=== PATIENT | female | born 2000 | race African-American/Black ===

== ENCOUNTER 2019-04-13 06:40 | Observation (INO) | payer OTHER, SELFPAY ==
--- NOTE | 2019-04-13 06:36 | PC.NURSE ---
spoke with L&D nurse; Janice LOW, and informed her of this pt being en route to them for c/c of pelvic pain, low back pain, and is 31 weeks . Pt taken ot L&D via ED w/c by Alondra Lima RN
[2019-04-13 07:10] VITALS: BP 128/71; PULSE 84
[2019-04-13 07:16] VITALS: BP 108/57; PULSE 81
[2019-04-13 07:30] VITALS: BP 115/67; PULSE 84
[2019-04-13 07:33] LABS: Add Urine Microscopic? YES; Appearance Urine Clear (Clear); Bacteria Urine Trace /hpf; Bilirubin Urine Negative (Negative); Blood Urine Negative (Negative); Color Urine Yellow (Yellow); Glucose Urine UA Negative (Negative); Ketones Urine Negative (Negative); Leukocyte Esterase Ur Negative LEU/UL (NEGATIVE); Mucus Urine Rare /lpf; Nitrate Urine Negative (Negative); Protein Urine Negative (Negative); RBC Urine 0-2 /hpf (0-2); Squamous Epithelial Cell Urine Few /hpf (Few); Urobilinogen Urine Negative mg/dL (<2.0); WBC Urine 0-3 /hpf (0-3)
[2019-04-13 07:45] VITALS: BP 122/67; PULSE 83
[2019-04-13 08:01] VITALS: BP 101/46; PULSE 77
--- NOTE | 2019-05-11 09:36 | P.PNOB_ITS ---
OB - Triage/Final Diagnosis Evaluation Laboratory results: Laboratory Tests 04/13/19 07:09 Urine Color Yellow Urine Appearance Clear Urine pH 6.0 Ur Specific [place] 1.030 Urine Protein Negative Urine Glucose (UA) Negative Urine Ketones Negative Ur Blood (Man) Negative Urine Nitrate Negative Urine Bilirubin Negative Urine Urobilinogen Negative Ur Leukocyte Esterase Negative Urine RBC 0-2 Urine WBC 0-3 Ur Squamous Epith Cells Few Urine Bacteria Trace Urine Mucus Rare Final Diagnosis (1) Low back pain: Code(s): M54.5 - Low back pain Status: Acute
== END 2019-04-13 08:10 | disposition home or self-care (01) ==
PROVIDERS: Admitting Provider Obstetrics & Gynecology; PCP Physician Assistant; Visit Provider Obstetrics & Gynecology
DX: O99.89 Other specified diseases and conditions complicating pregnancy, childbirth and the puerperium (principal); M54.5 Low back pain; Z3A.31 31 weeks gestation of pregnancy
CPT/HCPCS: 81001; 87086; G0378; G0379

== ENCOUNTER 2019-06-08 17:12 | Observation (INO) | payer OTHER, SELFPAY ==
[2019-06-08 19:41] VITALS: BP 134/94; PULSE 79
--- NOTE | 2019-06-08 19:43 | OBADM ---
This patient, Fernando Boston, admitted to the OB room Labor/Delivery/Recovery 107 for observation. Patient/family oriented to hospital policies and general routines including ID bracelet, bed and alarms, visiting hours, pain management, procedures, bathroom and other care routines, personal items, smoking policy, room service/diet, and visiting hours. Patient/Family are encouraged to report perceived risks to care and to ask questions if they do not understand what they are told or what they should do.
[2019-06-08 19:46] VITALS: BP 138/81; PULSE 91
--- NOTE | 2019-07-10 10:27 | PM.OBTRLD ---
OB - Triage/Final Diagnosis Final Diagnosis (1) Low back pain: Code(s): M54.5 - Low back pain Status: Acute (2) False labor: Code(s): O47.9 - False labor, unspecified Status: Acute
== END 2019-06-08 20:06 | disposition home or self-care (01) ==
PROVIDERS: Admitting Provider Obstetrics & Gynecology; PCP Physician Assistant; Visit Provider Obstetrics & Gynecology
DX: O47.1 False labor at or after 37 completed weeks of gestation (principal); Z3A.38 38 weeks gestation of pregnancy
CPT/HCPCS: G0378; G0379

== ENCOUNTER 2019-06-10 21:07 | Inpatient (IN) | payer OTHER, SELFPAY ==
[2019-06-10] VITALS (37 sets, daily range): BP systolic 116–175; BP diastolic 73–144; PULSE 86–109; TEMP 36.6; O2SAT 98–100; BMI 40.3
--- NOTE | 2019-06-10 21:35 | PC.NURSE ---
rn at bedside. difficulty obtaining bp reading r/t pt position and activity. pt arm bent. pt denies any pih symptoms. attempting to obtain repeat bp w proper technique.
[2019-06-10] MEDS: AMPICILLIN 2 GM/NS 100 ML 2 GM/100 ML BAG IVPB (21:55)
[2019-06-10] MEDS: LACTATED RINGERS 1,000 ML 125 ML IV CONT ×3 (21:57→23:19)
--- NOTE | 2019-06-10 22:00 | PC.NURSE ---
rn at bedside attempting to obtain accurate bp. pt uncooperative w bp cuff positioning. pt arm bent. difficulty obtaining bp r/t pt activity an movement
[2019-06-10 22:24] LABS: Basophils Percent Auto 0.2 % (0.2-1.2); Eosinophils Percent Auto 0.1 % (0-4.4); Hematocrit 38.7 % (37.0-47.0); Hemoglobin 12.3 g/dL (12.0-15.0); Immature Granulocyte Absolute 0.06 K/mm3 (0.00-0.031); Immature Granulocyte Percent A 0.6 % (0-0.5); Lymphocytes Absolute Auto 1.38 K/mm3 (0.9-3.2); Lymphocytes Percent Auto 12.9 % (18.3-44.2); Mean Corpuscular HGB Conc 31.8 g/dl (32-36); Mean Corpuscular Hemoglobin 28.9 pg (26-34); Mean Corpuscular Volume 90.8 fl (80-100); Mean Platelet Volume 12.1 fl (7.4-10.4); Monocytes Absolute Auto 0.9 K/mm3 (0.1-0.6); Monocytes Percent Auto 8.8 % (2.6-8.5); Neutrophils Absolute Auto 8.3 K/mm3 (1.3-6.7); Neutrophils Percent Auto 77.4 % (45.5-73.1); Platelet Count Result 240 k/mm3 (150-375); Red Blood Count 4.26 M/mm3 (4.2-5.4); Red Cell Distribution Width 12.6 % (11.5-14.5); White Blood Count 10.7 K/mm3 (4.5-10.0)
--- NOTE | 2019-06-10 22:30 | PC.NURSE ---
rn and dr garcia at bedside. pt arm bent r/t epidural procedure. rn attempting to properly obtain bp results. dr garcia informed of difficulty obtaining pt bp. pt states that pt systolic bp is usually around 120 and pt diastolic bp is usually around 80.
--- NOTE | 2019-06-10 22:41 | PC.NURSE ---
rn at bedside attempting to obtain bp. pt arm bent during prior bp readings. pt regular sized cuff switched to large cuff and bp cuff repositioned w pt arm straight.
--- NOTE | 2019-06-10 23:18 | LDADM ---
This patient, Fernando Boston, was admitted to Labor/Delivery/Recovery 105 on 06/10/19 at 21:07. Plans for labor, pain management and were discussed with patient. Patient/family oriented to hospital policies and general routines including ID bracelet, bed and alarms, visiting hours, pain management, procedures, bathroom and other care routines, personal items, smoking policy, room service/diet and guest tray routines, security routines, and visiting hours. Patient/Family are encouraged to report perceived risks to care and to ask questions if they do not understand what they are told or what they should do. See OBIX for further documentation.
[2019-06-11] VITALS (17 sets, daily range): BP systolic 129–163; BP diastolic 68–125; PULSE 77–104; RESP 18–20; TEMP 36.8–37.3
[2019-06-11 01:10] LABS: Alanine Aminotransferase 11 U/L (4-35); Albumin Level 3.3 g/dL (3.7-5.6); Alkaline Phosphatase 187 U/L (45-116); Aspartate Amino Transferase 17 U/L (14-36); Bilirubin,Total 0.2 mg/dL (0.2-1.3); Blood Urea Nitrogen 4 mg/dL (8-21); Calcium 8.5 mg/dL (8.9-10.7); Carbon Dioxide 23 mmol/L (22-30); Chloride 103 mmol/L (98-107); Estimated CRCL calculation 186 ml/min; Estimated Glomerular Filt Rate > 60; Glucose 95 mg/dL (65-105); Potassium 3.5 mmol/L (3.4-5.0); Sodium 134 mmol/L (134-143)
[2019-06-11] MEDS: AMPICILLIN 1 GM/NS 50 ML 1 GM/50 ML BAG IVPB (01:52)
[2019-06-11] MEDS: LACTATED RINGERS 1,000 ML 125 ML IV CONT (01:59)
[2019-06-11] MEDS: OXYTOCIN 30 UNITS/NS 500 ML 30 UNITS/500 ML BAG IV CONT (02:47)
--- NOTE | 2019-06-11 03:20 | WPDOBADMIT ---
Obstetrics - Admit Note Admission Note: record reviewed. No pertinent additions to the history and/or any subsequent changes in the physical findings that are not consistent with the expected course of the were found. Additions to the history and/or subsequent changes in the physical findings follow. Patient arrived at 39 wks in active labor at 6-7 cm. Patient with SROM and thick meconium on 06/08 at 3 pm. uncomplicated.
--- NOTE | 2019-06-11 03:21 | PM.OBDSVD ---
DS: Diagnosis Discharge Diagnosis (1) 39 weeks gestation of : Code(s): Z3A.39 - 39 weeks gestation of Status: Acute (2) SROM (spontaneous rupture of membranes): Status: Acute (3) Vaginal delivery: Code(s): O80 - Encounter for full-term uncomplicated delivery Status: Acute (4) PIH ( induced hypertension): Code(s): O13.9 - Gestational [-induced] hypertension without significant proteinuria, unspecified trimester Status: Acute OB - DS: Summary OB Procedures : Ultrasound OB Procedures Intrapartum: Spontaneous Vag Delivery OB Procedures: : None Peripartum Data Infant Delivery Method: Natural Vaginal Laceration description: Periurethral - 1st Degree (3-0 vicryl) complications: none Status at Discharge Functional status at discharge: independent ambulation Overall status at discharge: patient is progressing back to baseline Time Spent with Patient Time attestation: Total time spent providing and/or coordinating discharge services: DS: Data Data Completed and Pending Labs on day of discharge: Labs from last 24 hours 06/11/19 06/10/19 06/10/19 00:48 21:55 21:55 WBC RBC Hgb Hct MCV MCH MCHC RDW Plt Count MPV Immature Gran % (Auto) Neut % (Auto) Lymph % (Auto) [place] % (Auto) Eos % (Auto) Baso % (Auto) Lymph # (Auto) [place] # (Auto) Eos # (Auto) Baso # (Auto) Abs Immat Gran (auto) Absolute Neuts (auto) Absolute Nucleated RBC Nucleated RBC % Sodium 134 Potassium 3.5 Chloride 103 Carbon Dioxide 23 BUN 4 L Creatinine 0.50 L Estim Creat Clear Calc 186 Estimated GFR > 60 Glucose 95 Calcium 8.5 L Total Bilirubin 0.2 AST 17 ALT 11 Alkaline Phosphatase 187 H Total Protein 7.0 Albumin 3.3 L RPR Pending Blood Type A Positive Antibody Screen Negative 06/10/19 21:55 WBC 10.7 H RBC 4.26 Hgb 12.3 Hct 38.7 MCV 90.8 MCH 28.9 MCHC 31.8 L RDW 12.6 Plt Count 240 MPV 12.1 H Immature Gran % (Auto) 0.6 H Neut % (Auto) 77.4 H Lymph % (Auto) 12.9 L [place] % (Auto) 8.8 H Eos % (Auto) 0.1 Baso % (Auto) 0.2 Lymph # (Auto) 1.38 [place] # (Auto) 0.9 H Eos # (Auto) 0.0 Baso # (Auto) 0.0 Abs Immat Gran (auto) 0.06 H Absolute Neuts (auto) 8.3 H Absolute Nucleated RBC 0.0 Nucleated RBC % 0.0 Sodium Potassium Chloride Carbon Dioxide BUN Creatinine Estim Creat Clear Calc Estimated GFR Glucose Calcium Total Bilirubin AST ALT Alkaline Phosphatase Total Protein Albumin RPR Blood Type Antibody Screen Discharge Plan Discharge Attending physician on discharge: Jinny Taveras Discharging Clinician: Jinny Taveras Anticipated Discharge Date/Time: 06/13/19 09:24 Patient Disposition: Home, Self-Care Activity: pelvic rest Diet: regular Patient Instructions: Antibiotic Form Stand Alone Forms: General Discharge Information Follow-up/Referrals: Gustavo Zapata MD [Physician] - 1 Week (BP check) Discharge Medications: Continued PNV cmb#95-ferrous fumarate-FA [] 28 mg iron- 800 mcg Tablet 1 tablet PO DAILY RF: 0 Date of admission: 06/10/19 21:07 Primary Care Provider: Lakisha,Gila Murillo Admitting Provider: Gustavo Zapata Attending physician on admission: Gustavo Zapata Condition: Stable
[2019-06-11] MEDS: OXYTOCIN 30 UNITS/NS 500 ML 30 UNITS/500 ML BAG 125 UNITS IV CONT (03:44)
--- NOTE | 2019-06-11 03:46 | PC.NURSE ---
pt arm bent during bp reading r/t pt holding /attempting .
--- NOTE | 2019-06-11 04:20 | P.PCNOB_ITS ---
OB - Delivery Note Procedure Delivery date: 06/11/19 Procedure: Intrapartal events: None Induction method: none Delivery monitor: external FHT and external uterine Route of delivery: Laceration description: Periurethral - 1st Degree (3-0 vicryl) Delivery repair: vicryl (3-0 vicryl) Specimen: Yes (placenta for meconium and prolonged ROM) Estimated blood loss (mL): 100 Anesthesia type: Epidural Disposition: PACU [place] Baby Weeks of gestation at delivery: 39 Infant gender: Female Weight (pounds): 6 Weight (ounces): 11 presentation: vertex Placenta delivery description: Spontaneous cord vessel description: 3 Vessels score one minute: 9 score five minutes: 9
[2019-06-11] MEDS: WITCH HAZEL 40 PADS 1 PAD TOPICAL (05:34)
[2019-06-11] MEDS: BENZOCAINE 20% AER SPR (*SP) 56 GM CAN 1 SPRAY TOPICAL (05:34)
--- NOTE | 2019-06-11 05:53 | PC.NURSE ---
Patient transferred in wheelchair to post room #291. Support person present. Oriented to unit, room, information board, rooming in, admission packet and security measures. Patient verbalizes understanding.
[2019-06-11] MEDS: SERTRALINE HCL 50 MG TABLET PO (09:56)
[2019-06-11] MEDS: MULTIVIT/MIN/PREN/FOL AC/IRON TABLET 1 TAB PO (09:56)
--- NOTE | 2019-06-11 21:32 | PC.NURSE ---
Patient viewed the discharge video Mother & Baby Care, The First Two Weeks . Patient was given the opportunity and encouraged to ask questions. Patient verbalized understanding of information shared and has been given the mother/baby guide for home reference.
[2019-06-12] VITALS (7 sets, daily range): BP systolic 124–148; BP diastolic 73–95; PULSE 80–89; RESP 14–18; TEMP 36.5–37.3; O2SAT 95–100
[2019-06-12 05:00] LABS: Hematocrit 32.3 % (37.0-47.0); Hemoglobin 10.4 g/dL (12.0-15.0)
[2019-06-12 07:28] LABS: Rapid Plasma Reagin Non-Reactive (NonReactive)
--- NOTE | 2019-06-12 07:32 | WPDANLDPN2 ---
Anes-Prog Note L&D Date/Time: 06/12/19 07:32 Comfortable throughout: labor and delivery Neuraxial method: epidural Epidural/Spinal procedure site: clean & non-tender Neuro status: Neuro function grossly intact. Cardiovascular status: normal Respiratory status: normal Airway patency: baseline Mental status: baseline Post-Op hydration status: normal Vital Signs: Last Vital Signs Temp 36.9 C 06/11/19 18:40 Pulse 82 06/12/19 04:08 Resp 18 06/11/19 18:40 BP 141/93 H 06/12/19 04:08 Pulse Ox 98 06/12/19 04:08 I/O: Intake & Output 06/11/19 06/11/19 06/12/19 15:59 23:59 07:59 Intake Total 700 1600 Output Total 800 Balance -100 1600 Post-procedural complaints: none Patient feedback: Patient satisfied with anesthetic care.
[2019-06-12] MEDS: POLYSACCHARIDE IRON COMPLEX 150 MG CAPSULE PO ×2 (08:00→17:37)
[2019-06-12] MEDS: ACETAMINOPHEN 325 MG TABLET 650 MG PO ×2 (08:52→17:37)
[2019-06-12] MEDS: DOCUSATE SODIUM 100 MG CAPSULE PO ×2 (08:52→17:36)
[2019-06-12] MEDS: SERTRALINE HCL 50 MG TABLET PO (08:52)
[2019-06-12] MEDS: MULTIVIT/MIN/PREN/FOL AC/IRON TABLET 1 TAB PO (08:52)
--- NOTE | 2019-06-12 10:15 | PM.OBPNVD ---
OB - PN: Subj Subjective Date/time seen: 06/12/19 10:15 Patient comments: no complaints baby status: doing well OB - PN: Obj Data Labs CBC & Chem 7: 06/12/19 04:54 06/11/19 00:48 Labs: Laboratory Results - last 24 hr 06/10/19 06/12/19 21:55 04:54 Hgb 10.4 L Hct 32.3 L RPR Non-reactive OB - PN A/P Plan day: 1 Plan: routine care Time Spent With Patient Time: Total time spent is greater than 50% in coordination of care (as documented) at patient's floor/unit and/or counseling patient: Exam : Bimanual exam- vagina & uterus: other (Uterus firm, nt @U)
--- NOTE | 2019-06-12 13:00 | PC.NURSE ---
Consult with pt., mother stated to RN she wishes to attempt to breast. Offered assist with this feeding, mother states she wishes for FOB to bottle feed at this time. Discussed breastmilk production and offered to set up with pumping, mother declines.
[2019-06-13 05:15] VITALS: BP 149/98; PULSE 76; RESP 16; O2SAT 100
[2019-06-13] MEDS: ACETAMINOPHEN 325 MG TABLET 650 MG PO ×2 (05:15→10:35)
[2019-06-13 07:18] LABS: Basophils Percent Auto 0.2 % (0.2-1.2); Eosinophils Absolute Auto 0.1 K/mm3 (0-0.3); Eosinophils Percent Auto 1.1 % (0-4.4); Hematocrit 32.9 % (37.0-47.0); Hemoglobin 10.4 g/dL (12.0-15.0); Immature Granulocyte Absolute 0.02 K/mm3 (0.00-0.031); Immature Granulocyte Percent A 0.2 % (0-0.5); Lymphocytes Absolute Auto 2.79 K/mm3 (0.9-3.2); Lymphocytes Percent Auto 31.2 % (18.3-44.2); Mean Corpuscular HGB Conc 31.6 g/dl (32-36); Mean Corpuscular Hemoglobin 29.1 pg (26-34); Mean Corpuscular Volume 91.9 fl (80-100); Monocytes Absolute Auto 0.8 K/mm3 (0.1-0.6); Monocytes Percent Auto 9.2 % (2.6-8.5); Neutrophils Absolute Auto 5.2 K/mm3 (1.3-6.7); Neutrophils Percent Auto 58.1 % (45.5-73.1); Platelet Count Result 209 k/mm3 (150-375); Red Blood Count 3.58 M/mm3 (4.2-5.4); Red Cell Distribution Width 12.7 % (11.5-14.5)
[2019-06-13 07:34] LABS: Alanine Aminotransferase 10 U/L (4-35); Alkaline Phosphatase 121 U/L (45-116); Aspartate Amino Transferase 22 U/L (14-36); Bilirubin,Total 0.2 mg/dL (0.2-1.3); Blood Urea Nitrogen 6 mg/dL (8-21); Calcium 8.3 mg/dL (8.9-10.7); Carbon Dioxide 27 mmol/L (22-30); Chloride 103 mmol/L (98-107); Estimated CRCL calculation 158 ml/min; Estimated Glomerular Filt Rate > 60; Glucose 76 mg/dL (65-105); Potassium 3.4 mmol/L (3.4-5.0); Sodium 133 mmol/L (134-143); Uric Acid 5.2 mg/dL (3.0-5.9)
--- NOTE | 2019-06-13 07:45 | PM.OBPNVD ---
OB - PN: Subj Subjective Date/time seen: 06/13/19 07:45 Patient comments: no complaints and pain well controlled baby status: doing well OB - PN: Obj Data Labs CBC & Chem 7: 06/13/19 07:10 06/13/19 07:10 Labs: Laboratory Results - last 24 hr 06/13/19 06/13/19 07:10 07:10 WBC 9.0 RBC 3.58 L Hgb 10.4 L Hct 32.9 L MCV 91.9 MCH 29.1 MCHC 31.6 L RDW 12.7 Plt Count 209 MPV 11.0 H Immature Gran % (Auto) 0.2 Neut % (Auto) 58.1 Lymph % (Auto) 31.2 [place] % (Auto) 9.2 H Eos % (Auto) 1.1 Baso % (Auto) 0.2 Lymph # (Auto) 2.79 [place] # (Auto) 0.8 H Eos # (Auto) 0.1 Baso # (Auto) 0.0 Abs Immat Gran (auto) 0.02 Absolute Neuts (auto) 5.2 Absolute Nucleated RBC 0.0 Nucleated RBC % 0.0 Sodium 133 L Potassium 3.4 Chloride 103 Carbon Dioxide 27 BUN 6 L Creatinine 0.60 L Estim Creat Clear Calc 158 Estimated GFR > 60 Glucose 76 Uric Acid 5.2 Calcium 8.3 L Total Bilirubin 0.2 AST 22 ALT 10 Alkaline Phosphatase 121 H Total Protein 6.0 L Albumin 3.0 L OB - PN A/P Plan day: 2 Plan: routine care and discharge home Time Spent With Patient Time: Total time spent is greater than 50% in coordination of care (as documented) at patient's floor/unit and/or counseling patient: Exam : Bimanual exam- vagina & uterus: other (Uterus firm, nt @U)
--- NOTE | 2019-06-13 07:46 | PM.OBPNVD ---
OB - PN: Subj Subjective Date/time seen: 06/13/19 07:46 Patient comments: no complaints baby status: doing well OB - PN: Obj Data Labs CBC & Chem 7: 06/13/19 07:10 06/13/19 07:10 Labs: Laboratory Results - last 24 hr 06/13/19 06/13/19 07:10 07:10 WBC 9.0 RBC 3.58 L Hgb 10.4 L Hct 32.9 L MCV 91.9 MCH 29.1 MCHC 31.6 L RDW 12.7 Plt Count 209 MPV 11.0 H Immature Gran % (Auto) 0.2 Neut % (Auto) 58.1 Lymph % (Auto) 31.2 [place] % (Auto) 9.2 H Eos % (Auto) 1.1 Baso % (Auto) 0.2 Lymph # (Auto) 2.79 [place] # (Auto) 0.8 H Eos # (Auto) 0.1 Baso # (Auto) 0.0 Abs Immat Gran (auto) 0.02 Absolute Neuts (auto) 5.2 Absolute Nucleated RBC 0.0 Nucleated RBC % 0.0 Sodium 133 L Potassium 3.4 Chloride 103 Carbon Dioxide 27 BUN 6 L Creatinine 0.60 L Estim Creat Clear Calc 158 Estimated GFR > 60 Glucose 76 Uric Acid 5.2 Calcium 8.3 L Total Bilirubin 0.2 AST 22 ALT 10 Alkaline Phosphatase 121 H Total Protein 6.0 L Albumin 3.0 L OB - PN A/P Plan day: 1 Plan: routine care, discharge home and follow up 6 weeks Time Spent With Patient Time: Total time spent is greater than 50% in coordination of care (as documented) at patient's floor/unit and/or counseling patient: Exam : Bimanual exam- vagina & uterus: other (Uterus firm, nt @U)
[2019-06-13 08:20] VITALS: BP 135/81; PULSE 74; RESP 16; TEMP 37.2; O2SAT 100
[2019-06-13] MEDS: DOCUSATE SODIUM 100 MG CAPSULE PO (10:35)
[2019-06-13] MEDS: MULTIVIT/MIN/PREN/FOL AC/IRON TABLET 1 TAB PO (10:35)
[2019-06-13] MEDS: SERTRALINE HCL 50 MG TABLET PO (10:35)
[2019-06-14 12:21] VITALS: BP 145/82; PULSE 73; RESP 20; TEMP 37.2
== END 2019-06-13 14:40 | disposition home or self-care (01) | DRG 560 ==
LOC: ANHLDR 06-14 11:49 → ANHOB2 06-14 11:49
PROVIDERS: Obstetrics & Gynecology; Admitting Provider Obstetrics & Gynecology Gynecology; PCP Physician Assistant; Visit Provider Obstetrics & Gynecology Gynecology
DX: O13.4 Gestational [pregnancy-induced] hypertension without significant proteinuria, complicating childbirth (principal); Z37.0 Single live birth; Z3A.39 39 weeks gestation of pregnancy; O99.824 Streptococcus B carrier state complicating childbirth; O77.0 Labor and delivery complicated by meconium in amniotic fluid; O36.8330 Maternal care for abnormalities of the fetal heart rate or rhythm, third trimester, not applicable or unspecified; O70.0 First degree perineal laceration during delivery
CPT/HCPCS: 36415; 80053; 84550; 85014; 85018; 85025; 86592; 86850; 86900; 86901; 88307; A9270; J0290; J2590; J3010; J7120

== ENCOUNTER 2020-01-02 09:29 | Outpatient (CLI) | payer OTHER, SELFPAY ==
--- NOTE | ~2020-01-02 | US_ITS ---
EXAMINATION: US OB >= 14 weeks Fetus DATE: 01/02/2020 10:04 INDICATION: dating, gestational age unknown TECHNIQUE: Real-time ultrasound of the pelvis was performed. COMPARISON: None. FINDINGS: There is a single living fetus in vertex presentation. The placenta is posterior. heart rate is 141 beats per minute (bpm). cardiac activity and movement are noted. The amniotic fluid index is subjectively normal. The following biometric data were obtained: Biparietal diameter (BPD): 3.2 cm; head circumference (HC): 13.2 cm; abdominal circumference (AC): 11 .4 cm; femur length (FL): 2.4 cm. These measurements are concordant. Estimated weight is 186 g +/- 27 g, which correlates with the >97th percentile when 06/25/2020 is used as estimated date of delivery. As single measurements, these parameters are each equal to the following estimated gestational ages w ith ranges of +/- 2 standard deviations: BPD: 16 weeks 1 days +/- 1 weeks 1 days. HC: 16 weeks 6 days +/- 1 weeks 1 days. AC: 17 weeks 2 days +/- 1 weeks 5 days. FL: 17 weeks 3 days +/- 1 weeks 3 days. estimated gestational age based solely on measurements from this exam is 17 weeks 0 days +/- 1 weeks 1 days. IMPRESSION: 1. Single living fetus in vertex presentation. 2. Estimated weight is 186 g +/- 27 g, which correlates with the >97th percentile when 06/25/2020 is used as estimated date of delivery. Reviewed, dictated and finalized at location A. IMPRESSION: 1. Single living fetus in vertex presentation. 2. Estimated weight is 186 g +/- 27 g, which correlates with the >97th pe rcentile when 06/25/2020 is used as estimated date of delivery.
== END 2020-01-02 09:30 | disposition home or self-care (01) ==
PROVIDERS: PCP Physician Assistant; Visit Provider Obstetrics & Gynecology
DX: Z36.89 Encounter for other specified antenatal screening (principal); Z3A.17 17 weeks gestation of pregnancy
CPT/HCPCS: 76805

== ENCOUNTER 2020-02-02 15:54 | Outpatient (CLI) | payer OTHER, SELFPAY ==
--- NOTE | ~2020-02-02 | US_ITS ---
EXAMINATION: US OB /maternal detail DATE: 02/02/2020 16:45 INDICATION: Second trimester anatomic survey TECHNIQUE: Real-time ultrasound of the pelvis was performed. COMPARISON: 01/02/2020 FINDINGS: There is a single living fetus in breech presentation. The placenta is posterior/fundal and 4.2 cm fr om the internal cervical os. heart rate is 163 beats per minute (bpm). cardiac activity and movement are noted. The amniotic fluid index is subjectively normal. The following anatomy was identified as normal: 4 chamber heart 3 vessel cord cord insertion kidneys urinary bladder stomach spine diaphragm ventricles cisterna magna cerebellum The following biometric data were obtained: Biparietal diameter (BPD): 4.9 cm; head circumference (HC): 19.0 cm; abdominal circumference (AC): 17 .2 cm; femur length (FL): 3.4 cm. These measurements are concordant. Estimated weight is 435 g +/- 65 g, which correlates with the 53rd percentile when 06/11/2020 is used as estimated date of delivery. As single measurements, these parameters are each equal to the following estimated gestational ages w ith ranges of +/- 2 standard deviations: BPD: 20 weeks 6 days +/- 1 weeks 5 days. HC: 21 weeks 2 days +/- 1 weeks 3 days. AC: 22 weeks 1 days +/- 2 weeks 0 days. FL: 21 weeks 0 days +/- 1 weeks 6 days. estimated gestational age based solely on measurements from this exam is 21 weeks 2 days +/- 1 weeks 3 days. IMPRESSION: 1. Single living fetus in breech presentation. 2. Estimated weight is 435 g +/- 65 g, which correlates with the 53rd percentile when 06/11/2020 is used as estimated date of delivery. Reviewed, dictated and finalized at location A. COM MANAGER IMPRESSION: 1. Single living fetus in breech presentation. 2. Estimated weight is 435 g +/- 65 g, which correlates with the 53rd per centile when 06/11/2020 is used as estimated date of delivery.
== END 2020-02-02 15:55 | disposition home or self-care (01) ==
LOC: ANHIMG 15:55
PROVIDERS: PCP Physician Assistant; Visit Provider Obstetrics & Gynecology
DX: Z34.82 Encounter for supervision of other normal pregnancy, second trimester (principal); Z3A.21 21 weeks gestation of pregnancy
CPT/HCPCS: 76805

== ENCOUNTER 2020-03-26 05:25 | Observation (INO) | payer OTHER, SELFPAY ==
[2020-03-26 05:56] VITALS: BP 134/87; PULSE 92
[2020-03-26 06:00] VITALS: BP 122/73; PULSE 89
[2020-03-26 06:52] LABS: Add Urine Microscopic? YES; Appearance Urine Clear (Clear); Bacteria Urine Trace /hpf; Bilirubin Urine Negative (Negative); Blood Urine Negative (Negative); Color Urine Yellow (Yellow); Glucose Urine UA Negative (Negative); Ketones Urine 1+ mg/dL (Negative); Leukocyte Esterase Ur Negative LEU/UL (Negative); Mucus Urine Few /lpf; Nitrate Urine Negative (Negative); Protein Urine 1+ mg/dL (Negative); RBC Urine 0-2 /hpf (0-2); Squamous Epithelial Cell Urine Few /hpf (Few); WBC Urine 0-3 /hpf
[2020-03-26] MEDS: CYCLOBENZAPRINE HCL 5 MG TABLET PO (08:10)
[2020-03-26 08:11] VITALS: BMI 37.4
--- NOTE | 2020-04-01 08:25 | P.PNOB_ITS ---
OB - Triage/Final Diagnosis Evaluation Laboratory results: Laboratory Tests 03/26/20 05:59 Urine Color Yellow Urine Appearance Clear Urine pH 6.0 Ur Specific [place] 1.030 Urine Protein 1+ H Urine Glucose (UA) Negative Urine Ketones 1+ H Ur Blood (Man) Negative Urine Nitrate Negative Urine Bilirubin Negative Urine Urobilinogen 2.0 H Leukocyte Esterase Rfl Negative Urine RBC 0-2 Urine WBC 0-3 Ur Squamous Epith Cells Few Urine Bacteria Trace Urine Mucus Few H Final Diagnosis (1) Low back pain: Code(s): M54.5 - Low back pain Status: Acute
== END 2020-03-26 09:30 | disposition home or self-care (01) ==
PROVIDERS: Admitting Provider Obstetrics & Gynecology; PCP Physician Assistant; Visit Provider Obstetrics & Gynecology
DX: O99.891 Other specified diseases and conditions complicating pregnancy (principal); M54.5 Low back pain; Z3A.00 Weeks of gestation of pregnancy not specified
CPT/HCPCS: 81001; A9270; G0378; G0379

== ENCOUNTER 2020-05-07 16:44 | Observation (INO) | payer OTHER, SELFPAY ==
[2020-05-07 17:12] VITALS: BP 144/72; PULSE 103
[2020-05-07 17:31] VITALS: BP 127/85; PULSE 98
[2020-05-07 17:31] LABS: Add Urine Microscopic? YES; Appearance Urine Clear (Clear); Bacteria Urine Trace /hpf; Bilirubin Urine Negative (Negative); Blood Urine Negative (Negative); Color Urine Yellow (Yellow); Glucose Urine UA Negative (Negative); Ketones Urine Negative (Negative); Leukocyte Esterase Ur Negative LEU/UL (NEGATIVE); Mucus Urine Few /lpf; Nitrate Urine Negative (Negative); Protein Urine 1+ mg/dL (Negative); RBC Urine 0-2 /hpf (0-2); Specific Grav Ur 1.026 (1.001-1.035); Squamous Epithelial Cell Urine Rare /hpf (Few); WBC Urine 0-3 /hpf (0-3)
[2020-05-07 17:46] VITALS: BP 124/69; PULSE 95
[2020-05-07 17:53] VITALS: BMI 38.3
[2020-05-07] MEDS: ACETAMINOPHEN 500 MG TABLET 1000 MG PO (17:55)
[2020-05-07 18:01] VITALS: BP 120/62; PULSE 87
[2020-05-07 18:16] VITALS: BP 131/69; PULSE 86
--- NOTE | 2020-05-13 09:49 | P.PNOB_ITS ---
OB - Triage/Final Diagnosis Visit Information Comments/Additional reasons for admission: I have assessed the risk for this patient, Fernando Renate Boston, and determined that she would benefit from observation care. Evaluation Laboratory results: Laboratory Tests 05/07/20 17:19 Urine Color Yellow Urine Appearance Clear Urine pH 6.0 Ur Specific [place] 1.026 Urine Protein 1+ H Urine Glucose (UA) Negative Urine Ketones Negative Ur Blood (Man) Negative Urine Nitrate Negative Urine Bilirubin Negative Urine Urobilinogen 2.0 H Ur Leukocyte Esterase Negative Urine RBC 0-2 Urine WBC 0-3 Ur Squamous Epith Cells Rare Urine Bacteria Trace Urine Mucus Few H Final Diagnosis (1) Generalized pain: Code(s): R52 - Pain, unspecified Status: Acute
== END 2020-05-07 18:30 | disposition home or self-care (01) ==
PROVIDERS: Admitting Provider Obstetrics & Gynecology; PCP Physician Assistant; Visit Provider Obstetrics & Gynecology Gynecology
DX: O26.899 Other specified pregnancy related conditions, unspecified trimester (principal); R52 Pain, unspecified; Z3A.00 Weeks of gestation of pregnancy not specified
CPT/HCPCS: 81001; 87086; 87088; A9270; G0378; G0379

== ENCOUNTER 2020-05-27 13:26 | Outpatient (CLI) | payer OTHER, SELFPAY ==
--- NOTE | ~2020-05-27 | US_ITS ---
EXAMINATION: US OB follow up EXAM DATE: 05/27/2020 14:52 INDICATION: Check CARLOS and EFW. growth. 3rd trimester. TECHNIQUE: Pelvic obstetrical transabdominal sonogram was performed by a technologist. There are mu ltiple grayscale and Doppler images available for interpretation. Comparison is made to prior examina tion from 02/02/2020. FINDINGS: There is a single fetus identified in vertex presentation with a heart rate of 134 beats pe r minute. The placenta is located in the posterior position. There is no sonographic evidence of ret roplacental hemorrhage identified. The amniotic fluid index is 9.4 centimeters, which is normal. 7.5 -24.4 BIOMETRIC DATA: Biparietal diameter (BPD): 9.2 cm ----------------> 37 weeks 1 day. Head circumference (HC): 33.2 cm ----------------> 37 weeks 6 days. Abdominal circumference (AC): 34.2 cm ----------> 38 weeks 0 days. Femur length (FL): 7.3 cm --------------------------> 37 weeks 1 day. These measurements are concordant. HC/AC ratio is 0.97 (The 5th -- 95th percentile range is 0.91-1.05. Estimated weight is 3283 g +/- 492 g. This is the 57th percentile when the currently reported clinical gestation age 37 weeks 6 days, clinical estimated date of delivery (JERO-OPE) 06/11 is used. F etal estimated gestational age based on measurements from this exam is 37 weeks 4 days, with an estim ated date of delivery (JERO-AUA) 06/13. IMPRESSION: 1. Single fetus in vertex presentation with heart rate 134 beats per minute. 2. Estimated weight of 3283 grams, 57th percentile using the currently reported clinical gesta tion age of 37 weeks 6 days, JERO(OPE) 06/11/2020. 3. Normal CARLOS 9.4 cm. Reviewed, dictated and finalized at location B. ORATE TUTOR IMPRESSION: 1. Single fetus in vertex presentation with heart rate 134 beats per minute. 2. Estimated weight of 3283 grams, 57th percentile using the currently r eported clinical gestation age of 37 weeks 6 days, JERO(OPE) 06/11/2020. 3. Normal CARLOS 9.4 cm.
[2020-05-27 14:36] VITALS: BP 126/67; PULSE 86
== END 2020-05-27 15:00 | disposition home or self-care (01) ==
LOC: ANHOBOP 14:06 → ANHLDR 14:07
PROVIDERS: PCP Physician Assistant; Visit Provider Obstetrics & Gynecology
DX: O41.8X90 Other specified disorders of amniotic fluid and membranes, unspecified trimester, not applicable or unspecified (principal); Z3A.37 37 weeks gestation of pregnancy
CPT/HCPCS: 59025; 76816; 84112; 99199

== ENCOUNTER 2020-06-05 05:44 | Inpatient (IN) | payer OTHER, SELFPAY ==
[2020-06-05] VITALS (82 sets, daily range): BP systolic 107–144; BP diastolic 57–116; PULSE 66–224; RESP 16–18; TEMP 36.4–37.1; O2SAT 87–100; BMI 41.1
--- NOTE | 2020-06-05 05:44 | LDADM ---
This patient, Fernando Boston, was admitted to Labor/Delivery/Recovery 103 on 06/05/20 at 05:44. Plans for labor, pain management and were discussed with patient. Patient/family oriented to hospital policies and general routines including ID bracelet, bed and alarms, visiting hours, pain management, procedures, bathroom and other care routines, personal items, smoking policy, room service/diet and guest tray routines, security routines, and visiting hours. Patient/Family are encouraged to report perceived risks to care and to ask questions if they do not understand what they are told or what they should do. See OBIX for further documentation.
--- NOTE | 2020-06-05 06:24 | WPDANESEPP ---
Anes - Eval Pre Procedure Procedure: Labor epidural Date/Time: 06/05/20 06:24 Surgeon: ángel Preop Diagnosis: pain during labor Pre Op Diagnosis: IOL Patient Data Age: 19 Gender: F Height: Weight: Allergies Allergy/AdvReac Type Severity Reaction Status Date / Time No Known Allergies Allergy Verified 06/06/19 15:23 Home Medications Medication Instructions Recorded Confirmed Type PNV cmb#95-ferrous fumarate-FA 1 tablet PO DAILY 06/06/19 06/05/20 History [] ergocalciferol (vitamin D2) 1 tablet PO DAILY 06/05/20 06/05/20 History sertraline 50 mg PO DAILY 06/05/20 06/05/20 History Patient hx anesthesia problems: none Family hx anesthesia problems: none PMFSH Past Medical History Medical History (Updated 06/05/20 @ 06:27 by Rosalia Salas CRNA) IUP (intrauterine ), incidental Low back pain Morbid obesity with BMI of 40.0-44.9, adult PIH ( induced hypertension) Family History Family History (Updated 06/06/19 @ 15:24 by Farhat Andino RN) Other Obesity Social History Social History Smoking status: Never smoker Substance use: never Spiritual care concerns: No Exam Day of Procedure 06/05/20 06:24
[2020-06-05 06:33] LABS: Basophils Percent Auto 0.2 % (0.2-1.2); Eosinophils Absolute Auto 0.1 K/mm3 (0-0.3); Eosinophils Percent Auto 0.6 % (0-4.4); Hematocrit 32.7 % (37.0-47.0); Hemoglobin 10.3 g/dL (12.0-15.0); Immature Granulocyte Absolute 0.04 K/mm3 (0.00-0.031); Immature Granulocyte Percent A 0.5 % (0-0.5); Lymphocytes Absolute Auto 1.86 K/mm3 (0.9-3.2); Lymphocytes Percent Auto 22.1 % (18.3-44.2); Mean Corpuscular HGB Conc 31.5 g/dl (32-36); Mean Corpuscular Hemoglobin 28.2 pg (26-34); Mean Corpuscular Volume 89.6 fl (80-100); Mean Platelet Volume 10.4 fl (7.4-10.4); Monocytes Absolute Auto 0.7 K/mm3 (0.1-0.6); Monocytes Percent Auto 8.7 % (2.6-8.5); Neutrophils Absolute Auto 5.7 K/mm3 (1.3-6.7); Neutrophils Percent Auto 67.9 % (45.5-73.1); Platelet Count Result 249 k/mm3 (150-375); Red Blood Count 3.65 M/mm3 (4.2-5.4); Red Cell Distribution Width 13.1 % (11.5-14.5); White Blood Count 8.4 K/mm3 (4.5-10.0)
[2020-06-05] MEDS: LACTATED RINGERS 1,000 ML 125 ML IV CONT ×2 (06:38→09:35)
[2020-06-05] MEDS: OXYTOCIN 30 UNITS/NS 500 ML 30 UNITS/500 ML BAG IV CONT (06:39)
[2020-06-05] MEDS: AMPICILLIN 2 GM/NS 100 ML 2 GM/100 ML BAG IVPB (06:39)
[2020-06-05] MEDS: AMPICILLIN 1 GM/NS 50 ML 1 GM/50 ML BAG IVPB (10:23)
[2020-06-05 11:06] LABS: Amphetamine Screen Urine Negative (Negative); Barbiturate Screen Urine Negative (Negative); Benzodiazepines Screen Urine Negative (Negative); Cannabinoid Screen Urine Positive (Negative); Cocaine Screen Urine Negative (Negative); Methadone Screen Urine Negative (Negative); Opiate Screen Urine Negative (Negative); Phencyclidine Screen Urine Negative (Negative)
[2020-06-05 11:30] LABS: Rapid Plasma Reagin Non-Reactive (NonReactive)
--- NOTE | 2020-06-05 11:57 | WPDOBADMIT ---
Obstetrics - Admit Note Admission Note: AROM scant blood tinged fluid record reviewed. No pertinent additions to the history and/or any subsequent changes in the physical findings that are not consistent with the expected course of the were found. Additions to the history and/or subsequent changes in the physical findings follow. None.
--- NOTE | 2020-06-05 12:27 | PM.OBPRVD ---
OB - Delivery Note Procedure Delivery date: 06/05/20 Procedure: events: Labor Induction Intrapartal events: None Induction method: AROM and per pitocin protocol Delivery monitor: external FHT and external uterine Route of delivery: Laceration Description: None Quantitative Blood Loss (ml): 110 Anesthesia type: Epidural Disposition: floor Baby Date of : 06/05/20 Time of : 12:17 Weeks of gestation at delivery: 39 gender: Female Weight (pounds): 6 Weight (ounces): 15 presentation: vertex position: Left Occiput Anterior Placenta delivery description: Spontaneous cord vessel description: 3 Vessels and True Knot score one minute: 9 score five minutes: 9
[2020-06-05] MEDS: OXYTOCIN 30 UNITS/NS 500 ML 30 UNITS/500 ML BAG 125 UNITS IV CONT (12:38)
[2020-06-05] MEDS: WITCH HAZEL 40 PADS 1 PAD TOPICAL (13:59)
[2020-06-05] MEDS: BENZOCAINE 20% AER SPR (*SP) 56 GM CAN 1 SPRAY TOPICAL (13:59)
[2020-06-05] MEDS: IBUPROFEN 600 MG TABLET PO ×2 (13:59→20:59)
--- NOTE | 2020-06-05 15:31 | PC.NURSE ---
1529-Patient transferred to post room #291 via wheelchair. Support person present. Oriented to unit, room, information board, rooming in, admission packet and security measures. Patient verbalizes understanding.
[2020-06-06] VITALS: BP 119/71; PULSE 86; RESP 16; TEMP 37; O2SAT 100
[2020-06-06 04:00] VITALS: BP 123/79; PULSE 88; RESP 16; TEMP 36.9; O2SAT 100
[2020-06-06 05:54] LABS: Hematocrit 29.2 % (37.0-47.0); Hemoglobin 9.2 g/dL (12.0-15.0)
[2020-06-06 07:30] VITALS: BP 125/70; PULSE 85; RESP 18; TEMP 37.3; O2SAT 100
--- NOTE | 2020-06-06 07:42 | PM.OBPNVD ---
OB - PN: Subj Subjective Date/time seen: 06/06/20 07:42 Doing well no complaints OB - PN: Obj Data Labs CBC & Chem 7: 06/06/20 04:41 Labs: Laboratory Results - last 24 hr 06/05/20 06/05/20 06/05/20 06:21 06:21 10:33 Hgb Hct Urine Opiates Screen Negative Urine Methadone Screen Negative Ur Barbiturates Screen Negative Ur Phencyclidine Scrn Negative Ur Amphetamine Screen Negative U Benzodiazepines Scrn Negative Urine Cocaine Screen Negative U Cannabinoids Screen Positive A RPR Non-reactive Blood Type A Positive Antibody Screen Negative 06/06/20 04:41 Hgb 9.2 L Hct 29.2 L Urine Opiates Screen Urine Methadone Screen Ur Barbiturates Screen Ur Phencyclidine Scrn Ur Amphetamine Screen U Benzodiazepines Scrn Urine Cocaine Screen U Cannabinoids Screen RPR Blood Type Antibody Screen OB - PN A/P Assessment and Plan (1) IUP (intrauterine ), incidental: Code(s): Z33.1 - state, incidental Status: Acute (2) Vaginal delivery: Code(s): O80 - Encounter for full-term uncomplicated delivery Status: Acute Assessment and Plan: continue with pp care no complaints today. Time Spent With Patient Time: Total time spent is greater than 50% in coordination of care (as documented) at patient's floor/unit and/or counseling patient: Exam Narrative: Exam Narrative: ff below umbilicus
--- NOTE | 2020-06-06 09:24 | WPDANLDPN2 ---
Anes-Prog Note L&D Date/Time: 06/06/20 09:24 Comfortable throughout: labor and delivery Neuraxial method: epidural Epidural/Spinal procedure site: clean & non-tender Neuro status: Neuro function grossly intact. Cardiovascular status: normal Respiratory status: normal Airway patency: baseline Mental status: baseline Post-Op hydration status: normal Vital Signs: Last Vital Signs Temp 37.3 C 06/06/20 07:30 Pulse 85 06/06/20 07:30 Resp 18 06/06/20 07:30 BP 125/70 06/06/20 07:30 Pulse Ox 100 06/06/20 07:30 Pain score (VAS): 2 I/O: Intake & Output 06/05/20 06/06/20 06/06/20 23:59 07:59 15:59 Intake Total 500 Balance 500 Post-procedural complaints: none Patient feedback: Patient satisfied with anesthetic care.
[2020-06-06] MEDS: SERTRALINE HCL 50 MG TABLET PO (09:29)
[2020-06-06] MEDS: POLYSACCHARIDE IRON COMPLEX 150 MG CAPSULE PO ×2 (09:29→17:44)
[2020-06-06] MEDS: MULTIVIT/MIN/PREN/FOL AC/IRON TABLET 1 TAB PO (09:29)
[2020-06-06] MEDS: DOCUSATE SODIUM 100 MG CAPSULE PO ×2 (09:29→17:44)
[2020-06-06] MEDS: IBUPROFEN 600 MG TABLET PO (12:27)
[2020-06-06 20:00] VITALS: BP 119/83; PULSE 95; RESP 16; TEMP 37; O2SAT 100
[2020-06-07] MEDS: IBUPROFEN 600 MG TABLET PO ×2 (05:31)
--- NOTE | 2020-06-07 07:00 | PC.NURSE ---
PT introductions made and plan of care discussed per post , pain management, bottle feeding, daily care activities and pending discharge to home. PT verbalized understanding of such care.
[2020-06-07 08:30] VITALS: BP 121/77; PULSE 94; RESP 20; TEMP 37.5; O2SAT 100
[2020-06-07 10:30] VITALS: PULSE 94; RESP 20; O2SAT 100
[2020-06-07] MEDS: medroxyPROGESTERone ACETATE IM 150 MG/ML SYR IM (10:35)
[2020-06-07] MEDS: POLYSACCHARIDE IRON COMPLEX 150 MG CAPSULE PO (10:35)
[2020-06-07] MEDS: MULTIVIT/MIN/PREN/FOL AC/IRON TABLET 1 TAB PO (10:35)
[2020-06-07] MEDS: SERTRALINE HCL 50 MG TABLET PO (10:36)
[2020-06-07] MEDS: ACETAMINOPHEN 325 MG TABLET 650 MG PO (10:36)
--- NOTE | 2020-06-07 11:00 | PC.NURSE ---
PT and significant other received discharge instructions per protocol via one to one discussion with reference to the video and the Mom Baby Care Guide book. No barriers to learning and they both verbalized understanding of such care.
[2020-06-08 11:50] VITALS: BP 140/78; PULSE 87; RESP 20; O2SAT 100
--- NOTE | 2020-07-01 01:57 | PM.OBDSVD ---
DS: Admitting Diagnosis Admitting Diagnosis Admitting Diagnosis: induction of labor DS: Discharge Diagnosis Discharge Diagnosis (1) Vaginal delivery: Code(s): O80 - Encounter for full-term uncomplicated delivery Status: Acute OB - DS: Summary OB Procedures : Ultrasound OB Procedures Intrapartum: Spontaneous Vag Delivery OB Procedures: : None Peripartum Data Infant Delivery Method: Natural Vaginal Laceration Description: None complications: none Time Spent with Patient Time attestation: Total time spent providing and/or coordinating discharge services: Discharge Plan Discharge Attending physician on discharge: Gustavo Zapata Discharging Clinician: Gustavo Zapata Patient Disposition: Home, Self-Care Activity: may shower Diet: regular Discharge Instructions: Education: Mom and Baby Guide Given to: Mother Follow-Up: Call your delivering provider's office for an appointment to be seen in: 4 Weeks Mom and baby [facility] for the follow-up appointment. Appointment Date/Time: June 08, 2020 at 11:00 am What to expect at your follow-up visit: Blood Pressure Check Call [phone] if you are unable to keep your appointment time. BREAST CARE: * Wear a snug supportive bra. * For engorgement discomfort: * Wear loose clothing Bottle Feeding: * May apply ice packs PERINEAL CARE: * Until bleeding stops, use your leona bottle after urinating * Change your pad frequently throughout the day * You may take sitz baths several times a day (fill your bathtub with warm water and soak for 20 minutes.) Do NOT bathe in the water * No tub baths until seen by your physician - You may shower ACTIVITY: * Rest as much as possible. * Do not exercise or lift anything heavier than your baby (such as laundry or other children.) * Avoid stairs or driving as much as possible. * Do not put anything into the vagina. No douching, tampons, or sexual activity until seen by physician. NOTIFY PHYSICIAN IF YOU HAVE ANY QUESTIONS OR IF ANY OF THE FOLLOWING SYMPTOMS OCCUR: * If your perineum becomes red, swollen, or more painful than what you have experienced in the hospital. * If your vaginal bleeding becomes foul smelling. * If your vaginal bleeding becomes more heavy than a period or if your bleeding changes from pink to bright red. However, you may pass an occasional walnut-sized clot once or twice for the first week . * If you experience a sharp, shooting pain in you calves. * If you discover a hard, reddened area on your breast or if you experience flu-like symptoms. * If you have a fever of 100.4 or greater DIET: * Eat regular, well-balanced meals. * Drink plenty of fluids daily. If , drink to thirst. Patient Instructions: Antibiotic Form Stand Alone Forms: General Discharge Information Follow-up/Referrals: Gustavo Zapata MD [Physician] - Discharge Medications: Continued PNV cmb#95-ferrous fumarate-FA [] 28 mg iron- 800 mcg Tablet 1 tablet PO DAILY RF: 0 sertraline 50 mg tablet 50 mg PO DAILY RF: 0 ergocalciferol (vitamin D2) 1 tablet PO DAILY RF: 0 Date of admission: 06/05/20 05:44 Primary Care Provider: Lakisha,Gila Murillo Admitting Provider: Gustavo Zapata Attending physician on admission: Gustavo Zapata Condition: Stable
== END 2020-06-07 11:37 | disposition home or self-care (01) | DRG 560 ==
LOC: ANHLDR 05:51 → ANHOB2 16:40
PROVIDERS: Admitting Provider Obstetrics & Gynecology; PCP Physician Assistant; Visit Provider Obstetrics & Gynecology
DX: O99.824 Streptococcus B carrier state complicating childbirth (principal); O69.2XX0 Labor and delivery complicated by other cord entanglement, with compression, not applicable or unspecified; Z3A.39 39 weeks gestation of pregnancy; Z37.0 Single live birth
CPT/HCPCS: 36415; 80307; 85014; 85018; 85025; 86592; 86850; 86900; 86901; A9270; J0290; J1050; J2590; J2795; J7120

== ENCOUNTER 2021-10-04 16:17 | Emergency (ER) | payer OTHER, SELFPAY ==
--- NOTE | ~2021-10-04 | XR_ITS ---
EXAM: XR abdomen/kub 1V DATE: 10/04/2021 18:17 HISTORY: constipation x 2weeks . COMPARISON: None available. FINDINGS: Clear lung bases. The rectum is dilated to 7.2 cm by formed stool, otherwise normal bowel gas pattern. No organomegaly. No abnormal abdominal calcification. Regional bones and soft tissues no rmal for age. IMPRESSION: Possible fecal impaction/constipation. No radiographic evidence of obstruction or ileus. Reviewed, dictated and finalized at location K.
[2021-10-04 16:38] VITALS: BP 119/78; PULSE 101; RESP 14; TEMP 36.7; O2SAT 100
--- NOTE | 2021-10-04 18:42 | ED.ABDPAIN ---
HPI - Abdominal Pain General Chief Complaint: Abdominal Pain <CRYSTAL Regan Last Filed: 10/05/21 02:49> Stated Complaint: CONSTIPATION X 2WKS <CRYSTAL Regan Last Filed: 10/05/21 02:49> Time Seen by Provider: 10/04/21 18:08 <CRYSTAL Regan Last Filed: 10/05/21 02:49> History of Present Illness HPI narrative: Patient is a 21-year-old female here for evaluation of constipation for the past 2 weeks. Notes that she has not had a formed bowel movement this entire time, she is leaking liquid stools and has been wearing depends. Has attempted MiraLAX, Dulcolax, suppositories without relief. She was seen at outside hospital 1 week ago, had abdominal x-ray was told to take MiraLAX daily which she has complied with but has still not had relief. She has had a chronic issues with constipation for her life, although she has never gone this long without having a bowel movement. Patient has also been feeling nauseous, and has been vomiting for the past 3 days with diffuse abdominal pain. States that she has not been eating or drinking as much as usual and has had low appetite. Denies fevers, chest pain, shortness of breath. <CRYSTAL Regan Last Filed: 10/05/21 02:49> Related Data Home Medications: Home Medications Medication Instructions Recorded Confirmed vit no.95-ferrous 1 tablet PO DAILY 06/06/19 06/05/20 fumarate 28 mg-folic acid 800 mcg tablet () ergocalciferol (vitamin D2) 1 tablet PO DAILY 06/05/20 06/05/20 sertraline 50 mg tablet 50 mg PO DAILY 06/05/20 06/05/20 <CRYSTAL Regan Last Filed: 10/05/21 02:49> Allergies/Adverse Reactions: Allergies Allergy/AdvReac Type Severity Reaction Status Date / Time No Known Allergies Allergy Verified 06/06/19 15:23 <CRYSTAL Regan Last Filed: 10/05/21 02:49> Review of Systems Review of Systems: Gen: Denies fevers or chills Eyes: Denies eye pain or visual change ENT: Denies congestion Respiratory: Denies shortness of breath or cough CV: Denies chest pain or palpitations GI: Reports constipation, nausea, vomiting, abdominal pain : denies burning, urgency, frequency or hematuria Musculoskeletal: Denies back pain or muscle pain Neuro: Denies numbness, tingling, weakness or focal weakness Skin: Denies rash Except as documented, all other systems reviewed and negative <Jayleen Briceno PA-C - Last Filed: 10/05/21 02:49> [facility] Past Medical History Medical History: Medical History (Updated 10/05/21 @ 00:00 by Yoni Weber) IUP (intrauterine ), incidental Low back pain Morbid obesity with BMI of 40.0-44.9, adult PIH ( induced hypertension) <CRYSTAL Regan Last Filed: 10/05/21 02:49> Family History Family History: Family History (Updated 06/06/19 @ 15:24 by Farhat Andino RN) Other Obesity <CRYSTAL Regan Last Filed: 10/05/21 02:49> Social History Social History: Social History Smoking status: Never smoker Substance use: current Gender identity (if verbalized by the patient): Female Spiritual care concerns: No <Jayleen Briceno PA-C - Last Filed: 10/05/21 02:49> Exam Narrative: APPEARANCE: Well appearing, no pain in distress, well-nourished. Head: Normocephalic and atraumatic. EYES: PERRLA/EOMI, conjunctivae clear NOSE: No nasal drainage EARS: External ear normal in appearance THROAT: Oropharynx is clear. Mucous membranes are moist. NECK: Supple. No adenopathy, no masses. RESPIRATORY: Airway patent, respirations nonlabored. Clear to auscultation bilaterally, no rales, rhonchi, wheezing. CARDIOVASCULAR: Regular rate and rhythm without murmurs, rubs, or gallops. : Exam performed with nitro man cristal. No fecal matter retained in rectal vault after soap suds enema ABDOMINAL: Normoactive bowel sounds. Soft, nontender, nondistende
[2021-10-04] MEDS: SODIUM CHLORIDE 0.9% IV 1,000 ML 999 ML IV CONT (19:12)
[2021-10-04 19:13] LABS: Basophils Percent Auto 0.5 % (0.2-1.2); Eosinophils Absolute Auto 0.2 K/mm3 (0-0.3); Eosinophils Percent Auto 1.8 % (0-4.4); Hematocrit 39.4 % (37.0-47.0); Hemoglobin 12.7 g/dL (12.0-15.0); Immature Granulocyte Absolute 0.02 K/mm3 (0.00-0.031); Immature Granulocyte Percent A 0.2 % (0-0.5); Lymphocytes Absolute Auto 2.65 K/mm3 (0.9-3.2); Lymphocytes Percent Auto 31.2 % (18.3-44.2); Mean Corpuscular HGB Conc 32.2 g/dl (32-36); Mean Corpuscular Hemoglobin 28.3 pg (26-34); Mean Corpuscular Volume 87.9 fl (80-100); Monocytes Absolute Auto 0.9 K/mm3 (0.1-0.6); Monocytes Percent Auto 10.7 % (2.6-8.5); Neutrophils Absolute Auto 4.7 K/mm3 (1.3-6.7); Neutrophils Percent Auto 55.6 % (45.5-73.1); Platelet Count Result 431 k/mm3 (150-375); Red Blood Count 4.48 M/mm3 (4.2-5.4); Red Cell Distribution Width 12.4 % (11.5-14.5); White Blood Count 8.5 K/mm3 (4.5-10.0)
[2021-10-04] MEDS: ONDANSETRON INJ 4 MG/2 ML VIAL IV PUSH (19:13)
[2021-10-04 19:24] LABS: Alanine Aminotransferase 13 U/L (6-35); Albumin Level 4.4 g/dL (3.5-5.1); Alkaline Phosphatase 76 U/L (38-126); Anion Gap 8 mmol/L (8-16); Aspartate Amino Transferase 22 U/L (14-36); Bilirubin,Total 0.7 mg/dL (0.2-1.3); Blood Urea Nitrogen 16 mg/dL (7-17); Calcium 8.7 mg/dL (8.4-10.2); Carbon Dioxide 26 mmol/L (22-30); Chloride 104 mmol/L (98-107); Estimated Glomerular Filt Rate > 60; Glucose 99 mg/dL (65-110); Lactic Acid Reflex 1.5 mmol/L (0.7-2.0); Magnesium 2.1 mg/dL (1.6-2.3); Phosphorus 3.9 mg/dL (2.5-4.5); Potassium 3.5 mmol/L (3.4-5.0); Sodium 138 mmol/L (137-145)
[2021-10-04 19:41] VITALS: RESP 16; O2SAT 99
== END 2021-10-04 19:42 | disposition home or self-care (01) ==
PROVIDERS: Physician Assistant; Emergency Provider Preventive Medicine Aerospace Medicine
DX: K56.41 Fecal impaction (principal); E66.01 Morbid (severe) obesity due to excess calories
CPT/HCPCS: 36415; 74018; 80053; 81025; 83605; 83735; 84100; 85025; 96374; 99284; J2405; J7030

== ENCOUNTER 2022-03-30 18:25 | Emergency (ER) | payer OTHER, SELFPAY ==
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
[2022-03-30 18:37] VITALS: BP 124/63; PULSE 92; RESP 16; TEMP 36.4; O2SAT 100
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
[2022-03-30] MEDS: SODIUM CHLORIDE 0.9% IV 1,000 ML 999 ML IV CONT (20:22)
[2022-03-30] MEDS: ONDANSETRON INJ 4 MG/2 ML VIAL IV PUSH (20:22)
[2022-03-30 20:42] LABS: Add Urine Microscopic? YES; Appearance Urine Clear (Clear); Bilirubin Urine Negative (Negative); Blood Urine Negative (Negative); Color Urine Yellow (Yellow); Glucose Urine UA Negative (Negative); Ketones Urine 1+ mg/dL (Negative); Leukocyte Esterase Ur Negative LEU/UL (Negative); Nitrate Urine Negative (Negative); Protein Urine Negative (Negative); Specific Grav Ur 1.025 (1.001-1.035); pH Urine 6.5 (5.0-9.0)
[2022-03-30 20:44] LABS: Mucus Urine Rare /lpf; RBC Urine 0-2 /hpf (0-2); Squamous Epithelial Cell Urine Rare /hpf (Few); WBC Urine 0-3 /hpf
[2022-03-30 20:47] LABS: Basophils Percent Auto 0.2 % (0.2-1.2); Eosinophils Percent Auto 0.3 % (0-4.4); Hematocrit 36.6 % (37.0-47.0); Hemoglobin 11.2 g/dL (12.0-15.0); Immature Granulocyte Absolute 0.01 K/mm3 (0.00-0.031); Immature Granulocyte Percent A 0.2 % (0-0.5); Lymphocytes Absolute Auto 0.76 K/mm3 (0.9-3.2); Lymphocytes Percent Auto 11.6 % (18.3-44.2); Mean Corpuscular HGB Conc 30.6 g/dl (32-36); Mean Corpuscular Hemoglobin 27.5 pg (26-34); Mean Corpuscular Volume 89.7 fl (80-100); Mean Platelet Volume 10.3 fl (7.4-10.4); Monocytes Absolute Auto 0.4 K/mm3 (0.1-0.6); Neutrophils Absolute Auto 5.4 K/mm3 (1.3-6.7); Neutrophils Percent Auto 81.7 % (45.5-73.1); Platelet Count Result 294 k/mm3 (150-375); Red Blood Count 4.08 M/mm3 (4.2-5.4); Red Cell Distribution Width 12.7 % (11.5-14.5); White Blood Count 6.5 K/mm3 (4.5-10.0)
[2022-03-30 20:53] LABS: Alanine Aminotransferase 21 U/L (6-35); Albumin Level 3.9 g/dL (3.5-5.1); Alkaline Phosphatase 84 U/L (38-126); Anion Gap 6 mmol/L (8-16); Aspartate Amino Transferase 21 U/L (14-36); Bilirubin,Total 0.5 mg/dL (0.2-1.3); Blood Urea Nitrogen 10 mg/dL (7-17); Calcium 7.9 mg/dL (8.4-10.2); Carbon Dioxide 26 mmol/L (22-30); Chloride 107 mmol/L (98-107); Estimated CRCL calculation 134 ml/min; Estimated Glomerular Filt Rate > 60; Glucose 86 mg/dL (65-110); Potassium 3.8 mmol/L (3.4-5.0); Sodium 139 mmol/L (137-145)
[2022-03-30 21:10] LABS: Pregnancy On Board Control Positive; Urine Pregnancy Test Negative
== END 2022-03-30 22:19 | disposition home or self-care (01) ==
PROVIDERS: Emergency Provider Emergency Medicine; PCP Physician Assistant
DX: R10.9 Unspecified abdominal pain (principal); R11.2 Nausea with vomiting, unspecified; S39.92XA Unspecified injury of lower back, initial encounter; E66.01 Morbid (severe) obesity due to excess calories; Z68.30 Body mass index [BMI] 30.0-30.9, adult; V49.50XA Passenger injured in collision with unspecified motor vehicles in traffic accident, initial encounter
CPT/HCPCS: 36415; 70450; 71260; 72125; 72129; 72132; 74177; 80053; 81001; 81025; 85025; 96361; 96374; 96375; 99284; J0131; J2405; J7030; Q9967

== ENCOUNTER 2023-01-31 15:50 | Emergency (ER) | payer OTHER, SELFPAY ==
--- NOTE | ~2023-01-31 | US_ITS ---
EXAMINATION: US OB <= 14 weeks fetus INDICATION: pelvic pain, first trimester preg TECHNIQUE: Sonography of the pelvis was performed by transabdominal and transvaginal techniques. COMPARISON: None. RESULT: Uterus: 9.9 x 8.3 x 10.0 cm. Anteverted. Homogenous myometrium. Intrauterine gestational sac: Single present. Yolk sac not visualized. Embryo: Single present. Lowman rump length: 5.6 cm, corresponding gestational age 12 weeks, 1 days. G estational heart rate: present 148 bpm. Subgestational hematoma: Absent . Right ovary: 3.6 x 2.1 x 3.3 cm. Vascular flow is present. No adnexal mass. Left ovary: 2.8 x 1.5 x 2.1 cm. Vascular flow is present. No adnexal mass. Pelvis free fluid: Thin subchorionic fluid collection encompassing less than 20% of the gestational s ac. IMPRESSION: Single, live intrauterine gestation. Thin subchorionic fluid collection encompassing less than 20% of the gestational sac. Estimated Gestational Age: 12 weeks, 1 days by crown rump length. JERO by ultrasound 08/14/2023. Reviewed, dictated and finalized at location K. [employer] IMPRESSION: Single, live intrauterine gestation. Thin subchorionic fluid collection encompa ssing less than 20% of the gestational sac. Estimated Gestational Age: 12 weeks, 1 days by crown rump length. JERO by ultra sound 08/14/2023.
[2023-01-31 15:55] VITALS: BP 119/64; PULSE 69; RESP 20; TEMP 36.4; O2SAT 100
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
--- NOTE | 2023-01-31 17:07 | PC.NURSE ---
Spoke with Sharon in X-ray to call in [facility]
[2023-01-31 17:22] LABS: Basophils Percent Auto 0.5 % (0.2-1.2); Eosinophils Absolute Auto 0.1 K/mm3 (0-0.3); Eosinophils Percent Auto 1.1 % (0-4.4); Hematocrit 31.6 % (37.0-47.0); Hemoglobin 10.1 g/dL (12.0-15.0); Immature Granulocyte Absolute 0.01 K/mm3 (0.00-0.031); Immature Granulocyte Percent A 0.2 % (0-0.5); Lymphocytes Absolute Auto 1.42 K/mm3 (0.9-3.2); Lymphocytes Percent Auto 21.8 % (18.3-44.2); Mean Corpuscular Hemoglobin 28.5 pg (26-34); Mean Platelet Volume 10.3 fl (7.4-10.4); Monocytes Absolute Auto 0.7 K/mm3 (0.1-0.6); Neutrophils Absolute Auto 4.3 K/mm3 (1.3-6.7); Neutrophils Percent Auto 66.4 % (45.5-73.1); Platelet Count Result 273 k/mm3 (150-375); Red Blood Count 3.55 M/mm3 (4.2-5.4); Red Cell Distribution Width 13.4 % (11.5-14.5); White Blood Count 6.5 K/mm3 (4.5-10.0)
[2023-01-31 17:29] LABS: Appearance Urine Clear (Clear); Bilirubin Urine Negative (Negative); Blood Urine Negative (Negative); Color Urine Yellow (Yellow); Glucose Urine UA Negative (Negative); Ketones Urine 1+ mg/dL (Negative); Leukocyte Esterase Ur Negative LEU/UL (Negative); Nitrate Urine Negative (Negative); Protein Urine Negative (Negative); Specific Grav Ur 1.019 (1.001-1.035)
[2023-01-31 17:36] LABS: Alanine Aminotransferase 9 U/L (6-35); Albumin Level 3.5 g/dL (3.5-5.1); Alkaline Phosphatase 61 U/L (38-126); Anion Gap 8 mmol/L (8-16); Aspartate Amino Transferase 15 U/L (14-36); Bilirubin,Total 0.4 mg/dL (0.2-1.3); Blood Urea Nitrogen 5 mg/dL (7-17); Calcium 8.5 mg/dL (8.4-10.2); Carbon Dioxide 24 mmol/L (22-30); Chloride 105 mmol/L (98-107); Estimated CRCL calculation 155 ml/min; Estimated Glomerular Filt Rate > 60; Glucose 86 mg/dL (65-110); Lipase 86 U/L (23-300); Potassium 3.2 mmol/L (3.4-5.0); Sodium 137 mmol/L (137-145)
[2023-01-31 17:45] LABS: Add Urine Microscopic? NO
[2023-01-31] MEDS: SODIUM CHLORIDE 0.9% IV 1,000 ML 999 ML IV CONT (17:53)
[2023-01-31 18:33] LABS: Trichomonas Vag PCR NOT DETECTED (NOT DETECTE)
== END 2023-01-31 19:40 | disposition left against medical advice (07) ==
PROVIDERS: Emergency Provider Emergency Medicine; PCP Physician Assistant
DX: O26.891 Other specified pregnancy related conditions, first trimester (principal); R10.2 Pelvic and perineal pain; O99.211 Obesity complicating pregnancy, first trimester; E66.01 Morbid (severe) obesity due to excess calories; Z3A.12 12 weeks gestation of pregnancy
CPT/HCPCS: 36415; 76801; 80053; 81003; 81025; 83690; 84702; 85025; 87661; 96360; 99284; J7030

== ENCOUNTER 2023-07-03 09:52 | Outpatient (CLI) | payer OTHER, SELFPAY ==
[2023-07-03 11:59] LABS: Basophils Percent Auto 0.2 % (0.2-1.2); Eosinophils Absolute Auto 0.1 K/mm3 (0-0.3); Eosinophils Percent Auto 0.9 % (0-4.4); Hematocrit 31.8 % (37.0-47.0); Immature Granulocyte Absolute 0.12 K/mm3 (0.00-0.031); Immature Granulocyte Percent A 0.9 % (0-0.5); Lymphocytes Absolute Auto 2.21 K/mm3 (0.9-3.2); Lymphocytes Percent Auto 17.1 % (18.3-44.2); Mean Corpuscular HGB Conc 31.4 g/dl (32-36); Mean Corpuscular Hemoglobin 29.2 pg (26-34); Mean Corpuscular Volume 92.7 fl (80-100); Mean Platelet Volume 10.5 fl (7.4-10.4); Monocytes Absolute Auto 0.7 K/mm3 (0.1-0.6); Monocytes Percent Auto 5.1 % (2.6-8.5); Neutrophils Absolute Auto 9.8 K/mm3 (1.3-6.7); Neutrophils Percent Auto 75.8 % (45.5-73.1); Platelet Count Result 249 k/mm3 (150-375); Red Blood Count 3.43 M/mm3 (4.2-5.4); Red Cell Distribution Width 13.2 % (11.5-14.5)
[2023-07-03 12:13] LABS: Glucose 1 Hour PP 50gm Dose 117 mg/dL
[2023-07-03 12:54] LABS: HIV 1/2 Ab P24 Ag Result Negative (Negative)
== END 2023-07-03 09:53 | disposition home or self-care (01) ==
LOC: ANHLAB 09:53
PROVIDERS: PCP Physician Assistant; Visit Provider Obstetrics & Gynecology
DX: Z34.90 Encounter for supervision of normal pregnancy, unspecified, unspecified trimester (principal)
CPT/HCPCS: 36415; 82947; 85025; 86703; G0432

== ENCOUNTER 2023-08-09 06:05 | Inpatient (IN) | payer OTHER, SELFPAY ==
[2023-08-09] VITALS (100 sets, daily range): BP systolic 86–138; BP diastolic 40–96; PULSE 25–124; RESP 18–20; TEMP 36.6–36.9; O2SAT 72–100; BMI 35.9
--- NOTE | 2023-08-09 06:05 | LDADM ---
This patient, Fernando Boston, was admitted to Labor/Delivery/Recovery 109 on 08/09/23 at 06:05. Plans for labor, pain management and were discussed with patient. Patient/family oriented to hospital policies and general routines including ID bracelet, bed and alarms, visiting hours, pain management, procedures, bathroom and other care routines, personal items, smoking policy, room service/diet and guest tray routines, security routines, and visiting hours. Patient/Family are encouraged to report perceived risks to care and to ask questions if they do not understand what they are told or what they should do. See [facility] for further documentation.
[2023-08-09 06:41] LABS: Basophils Percent Auto 0.2 % (0.2-1.2); Eosinophils Absolute Auto 0.1 K/mm3 (0-0.3); Eosinophils Percent Auto 0.5 % (0-4.4); Hematocrit 33.2 % (37.0-47.0); Hemoglobin 10.5 g/dL (12.0-15.0); Immature Granulocyte Absolute 0.05 K/mm3 (0.00-0.031); Immature Granulocyte Percent A 0.4 % (0-0.5); Lymphocytes Absolute Auto 2.13 K/mm3 (0.9-3.2); Lymphocytes Percent Auto 18.3 % (18.3-44.2); Mean Corpuscular HGB Conc 31.6 g/dl (32-36); Mean Corpuscular Hemoglobin 28.2 pg (26-34); Mean Platelet Volume 10.5 fl (7.4-10.4); Monocytes Percent Auto 8.7 % (2.6-8.5); Neutrophils Absolute Auto 8.4 K/mm3 (1.3-6.7); Neutrophils Percent Auto 71.9 % (45.5-73.1); Platelet Count Result 243 k/mm3 (150-375); Red Blood Count 3.73 M/mm3 (4.2-5.4); Red Cell Distribution Width 14.6 % (11.5-14.5); White Blood Count 11.7 K/mm3 (4.5-10.0)
--- NOTE | 2023-08-09 06:49 | WPDANESEPP ---
Anes - Eval Pre Procedure Procedure: labor epidural Date/Time: 08/09/23 06:49 Surgeon: albert Preop Diagnosis: pain during labor Pre Op Diagnosis: IOL Patient Data Age: 22 Gender: F Height: 1.65 m Weight: 98 kg Last Vital Signs Pulse 85 08/09/23 06:45 BP 120/69 08/09/23 06:45 Allergies Allergy/AdvReac Type Severity Reaction Status Date / Time No Known Allergies Allergy Verified 08/02/23 17:09 Home Medications Medication Instructions Recorded Confirmed Type vits no.126-ferrous fum tablet PO 02/04/23 08/02/23 History 28 mg iron-folic acid 800 mcg tablet (Classic ) ferrous sulfate 325 mg (65 mg 325 mg PO DAILY #90 tabs 07/14/23 08/02/23 Rx iron) tablet (FeroSul) clobetasol 0.05 % topical ointment 1 applic topical DAILY #60 grams 08/02/23 08/02/23 Rx Laboratory Tests 08/09/23 06:32 WBC 11.7 H K/mm3 (4.5-10.0) RBC 3.73 L M/mm3 (4.2-5.4) Hgb 10.5 L g/dL (12.0-15.0) Hct 33.2 L % (37.0-47.0) MCV 89.0 fl (80-100) MCH 28.2 pg (26-34) MCHC 31.6 L g/dl (32-36) RDW 14.6 H % (11.5-14.5) Plt Count 243 k/mm3 (150-375) MPV 10.5 H fl (7.4-10.4) Immature Gran % (Auto) 0.4 % (0-0.5) Neut % (Auto) 71.9 % (45.5-73.1) Lymph % (Auto) 18.3 % (18.3-44.2) [place] % (Auto) 8.7 H % (2.6-8.5) Eos % (Auto) 0.5 % (0-4.4) Baso % (Auto) 0.2 % (0.2-1.2) Lymph # (Auto) 2.13 K/mm3 (0.9-3.2) [place] # (Auto) 1.0 H K/mm3 (0.1-0.6) Eos # (Auto) 0.1 K/mm3 (0-0.3) Baso # (Auto) 0.0 K/mm3 (0.0-0.1) Abs Immat Gran (auto) 0.05 H K/mm3 (0.00-0.031) Absolute Neuts (auto) 8.4 H K/mm3 (1.3-6.7) Absolute Nucleated RBC 0.000 K/mm3 (0.0-0.012) Nucleated RBC % 0.0 % (0.0-0.2) RPR Pending Patient hx anesthesia problems: none Family hx anesthesia problems: none Results Review: All pre-operative results and documents have been reviewed as part of the pre-operative evaluation. [facility] Past Medical History Medical History IUP (intrauterine ), incidental Low back pain Morbid obesity with BMI of 40.0-44.9, adult PIH ( induced hypertension) Family History Family History Mother Diabetes mellitus Social History Social History Smoking status: Former smoker Tobacco type: e-cigarettes/vaping Additional smoking assessment comments: 6-8 months of vaping for mom and does not currently used Alcohol intake: former Substance use: never Do You Feel Safe in your Home?: Yes Lack of Transportation: No Lack of Food: Never True Current Housing: I Have Housing Concerned About Future Housing: No Difficulty Paying Gas/Electric Bills: No Difficulty Paying for Meds: No Currently Unemployed: No Education: Trade/Vocational Certificate Difficulty w/ Childcare or Family Care: No Living arrangements: with family Occupation/Education: occupation Gender identity (if verbalized by the patient): Female Spiritual care concerns: No Exam Day of Procedure 08/09/23 06:49
[2023-08-09] MEDS: OXYTOCIN 30 UNITS/NS 500 ML 30 UNITS/500 ML BAG IV CONT (06:50)
[2023-08-09] MEDS: LACTATED RINGERS 1,000 ML 125 ML IV CONT ×2 (06:50→08:45)
--- NOTE | 2023-08-09 06:56 | PM.IMHP ---
H&P: HPI History of Present Illness Date/Time: 08/09/23 06:56 Chief Complaint: induction of labor Narrative: Fernando is a 22yo @ 39.2wks who presents for elective IOL. She reports good movement. Irregular contractions. No VB or LOF. Her is complicated by: - h/o PIH- daily ASA - Anemia Review of Systems Constitutional: Constitutional: Denies chills, Denies fever(s) and Denies headache(s) Eyes: Eyes: Denies change in vision ENT: Denies headache(s) Cardiovascular: Cardiovascular: Denies chest pain and Denies dyspnea Respiratory: Respiratory: Denies dyspnea Genitourinary: Genitourinary: Denies abnormal vaginal bleeding and Denies vaginal discharge Neurologic: Denies headache(s) Psychiatric: Psychiatric: Denies anxiety and Denies depression [facility] Past Medical History Medical History IUP (intrauterine ), incidental Low back pain Morbid obesity with BMI of 40.0-44.9, adult PIH ( induced hypertension) Family History Family History Mother Diabetes mellitus Social History Social History Smoking status: Former smoker Tobacco type: e-cigarettes/vaping Additional smoking assessment comments: 6-8 months of vaping for mom and does not currently used Alcohol intake: former Substance use: never Do You Feel Safe in your Home?: Yes Lack of Transportation: No Lack of Food: Never True Current Housing: I Have Housing Concerned About Future Housing: No Difficulty Paying Gas/Electric Bills: No Difficulty Paying for Meds: No Currently Unemployed: No Education: Trade/Vocational Certificate Difficulty w/ Childcare or Family Care: No Living arrangements: with family Occupation/Education: occupation Gender identity (if verbalized by the patient): Female Spiritual care concerns: No Meds Home Medications and Allergies Home Medications Medication Instructions Recorded Confirmed Type vits no.126-ferrous fum tablet PO 02/04/23 08/02/23 History 28 mg iron-folic acid 800 mcg tablet (Classic ) ferrous sulfate 325 mg (65 mg 325 mg PO DAILY #90 tabs 07/14/23 08/02/23 Rx iron) tablet (FeroSul) clobetasol 0.05 % topical ointment 1 applic topical DAILY #60 grams 08/02/23 08/02/23 Rx Allergies Allergy/AdvReac Type Severity Reaction Status Date / Time No Known Allergies Allergy Verified 08/02/23 17:09 Vital Signs Vital Signs - 24 hr 08/09/23 06:40 08/09/23 06:45 Pulse Rate 87 85 Blood Pressure 121/59 L 120/69 Exam Const: General: cooperative, no acute distress and obese Nutritional Appearance: obese Orientation/consciousness: patient oriented x3 Resp: Effort & Inspection: normal respiratory effort Cardio: Rate: regular rate GI: GI Palp: No abdominal tenderness : Other: FHT's: 150's/ mod carlos a/ + accels/ no decels - cat 1 TOCO: ctxs q2-4 min Cervix: 4/50/-2 Membranes: AROM, thin med 0715 Presentation: cephalic Skin: General skin exam: normal color Neuro: General: patient oriented x3 Extrem: General: normal to inspection Psych: Appearance: grossly normal Affect: normal affect Attitude: cooperative H&P: Results Labs Labs: Short CBC 08/09/23 Range/Units 06:32 WBC 11.7 H (4.5-10.0) K/mm3 Hgb 10.5 L (12.0-15.0) g/dL Hct 33.2 L (37.0-47.0) % Plt Count 243 (150-375) k/mm3 Assessment and Plan Assessment and plan (1) Encounter for elective induction of labor: Code(s): Z34.90 - Encounter for supervision of normal , unspecified, unspecified trimester Status: Acute Plan - Admit to L&D for elective IOL - Pitocin per protocol - AROM performed; thin mec - GBS negative - Anesthesia consult PRN pain
--- NOTE | 2023-08-09 11:59 | PM.OBPNLAB ---
Pain Control Date/time seen: 08/09/23 11:59 Pain control: epidural Pelvic Exam Dilation (cm): 8 Effacement (%): 80 station: -1 Amniotic membrane status: Ruptured Contractions Monitor mode: External Contraction frequency: 2 Status status: Category l Assessment and Plan Pitocin rate (mU/min): 8 Assessment: active labor Plan: continuous present management
--- NOTE | 2023-08-09 12:47 | P.PCNOB_ITS ---
OB - Vaginal Delivery Note Procedure Delivery date: 08/09/23 Events: Elective Induction of Labor Induction method: Per Pitocin Protocol Delivery augmentation: Rupture of Membranes Delivery monitor: External FHT and External Uterine Route of delivery: Laceration Description: Perineal - 1st Degree Delivery repair: vicryl Quantitative Blood Loss (ml): 200 Anesthesia type: Epidural Disposition: Floor Complications: No immediate complications [place] Baby Date of : 08/09/23 Time of : 12:32 Weeks of gestation at delivery: 39 (.2) gender: Female presentation: vertex Placenta delivery description: Expressed Cord Vessel Description: 3 Vessels and Delayed Cord Clamping score one minute: 9 score five minutes: 9 Narrative: Fernando progressed to complete dilation with strong desire to push. She pushed for 3 contractions and delivered the head over intact perineum. No nuchal cord was palpated. She easily delivered the infant's shoulders and body without complication. The was immediately placed skin to skin and had spontaneous cry. The pediatric team was present for delivery and they bulb suctioned her mouth and nose. Delayed cord clamping was performed. The umbilical cord was then doubly clamped and cut. A segment of the cord was collected for cord gases. The remaining cord blood was collected for typing. With Pitocin running and gentle downward traction on the cord, the placenta delivered without complications. Bimanual massage was performed and good uterine tone with minimal bleeding was noted. She was examined and a small first-degree perineal laceration was identified. It was reapproximated using 2- 0 Vicryl in the normal fashion and good hemostasis was noted. Her uterus remained firm with minimal bleeding. Sponge, lap, instrument, needle counts were correct at the end of the procedure. Mom and baby were left bonding in the birthing suite in stable condition.
[2023-08-09] MEDS: OXYTOCIN 30 UNITS/NS 500 ML 30 UNITS/500 ML BAG 125 UNITS IV CONT (13:03)
[2023-08-09 14:35] LABS: Rapid Plasma Reagin Non-Reactive (NonReactive)
--- NOTE | 2023-08-09 15:25 | PC.NURSE ---
Patient transferred to post room #292 per wheelchair from labor and delivery. Support person present. Oriented to unit, room, information board, rooming in, admission packet and security measures. Patient verbalizes understanding.
[2023-08-10] MEDS: IBUPROFEN 600 MG TABLET PO ×3 (02:27→16:08)
[2023-08-10 05:05] LABS: Hematocrit 31.2 % (37.0-47.0); Hemoglobin 9.6 g/dL (12.0-15.0)
--- NOTE | 2023-08-10 06:32 | PM.OBPNVD ---
OB - PN: Subj Subjective Date/time seen: 08/10/23 06:32 Narrative: PPD#1 Fernando reports doing well today. 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 Her pain is controlled. She is tolerating regular diet, voiding, passing gas, and ambulating without issues. She is bottle feeding. OB - PN: Obj Data Labs 08/10/23 03:46 Labs: Laboratory Results - last 24 hr 08/09/23 08/10/23 06:32 03:46 WBC 11.7 H RBC 3.73 L Hgb 10.5 L 9.6 L Hct 33.2 L 31.2 L MCV 89.0 MCH 28.2 MCHC 31.6 L RDW 14.6 H Plt Count 243 MPV 10.5 H Immature Gran % (Auto) 0.4 Neut % (Auto) 71.9 Lymph % (Auto) 18.3 [place] % (Auto) 8.7 H Eos % (Auto) 0.5 Baso % (Auto) 0.2 Lymph # (Auto) 2.13 [place] # (Auto) 1.0 H Eos # (Auto) 0.1 Baso # (Auto) 0.0 Abs Immat Gran (auto) 0.05 H Absolute Neuts (auto) 8.4 H Absolute Nucleated RBC 0.000 Nucleated RBC % 0.0 RPR Non-reactive Blood Type A Positive Antibody Screen Negative OB - PN A/P Assessment and Plan (1) Normal vaginal delivery of third : Code(s): O80 - Encounter for full-term uncomplicated delivery Status: Acute Plan day: 1 Plan: routine care and discharge home (tomorrow AM) Comments: - PO pain meds - Regular diet - Ambulation and hydration encouraged - Continue putting baby to breast q2-3hr Time Spent With Patient Time: Total time spent is greater than 50% in coordination of care (as documented) at patient's floor/unit and/or counseling patient: Review of Systems Constitutional: Constitutional: Denies chills, Denies fever(s) and Denies headache(s) Eyes: Eyes: Denies change in vision ENT: Denies dizziness and Denies headache(s) Cardiovascular: Cardiovascular: Denies chest pain, Denies palpitations and Denies dyspnea Respiratory: Respiratory: Denies cough and Denies dyspnea Gastrointestinal: Gastrointestinal: Denies nausea and Denies vomiting Neurologic: Denies dizziness and Denies headache(s) Endocrine: Endocrine: Denies palpitations Exam Const: General: cooperative, comfortable and no acute distress Orientation/consciousness: patient oriented x3 Resp: Effort & Inspection: normal respiratory effort Auscultation: clear to auscultation bilaterally Cardio: Rate: regular rate GI: Inspection: non-distended GI Palp: No abdominal tenderness and Yes Soft to palpation Auscultation: normal bowel sounds : Other: fundus firm Skin: General skin exam: normal color Neuro: General: patient oriented x3 Extrem: General: normal to inspection Psych: Appearance: grossly normal Affect: normal affect Attitude: cooperative
[2023-08-10 07:45] VITALS: BP 129/60; PULSE 85; RESP 16; TEMP 36.6; O2SAT 100
[2023-08-10] MEDS: DOCUSATE SODIUM 100 MG CAPSULE PO ×2 (08:12→16:08)
[2023-08-10] MEDS: POLYSACCHARIDE IRON COMPLEX 150 MG CAPSULE PO ×2 (08:12→16:08)
--- NOTE | 2023-08-10 08:52 | WPDANLDPN2 ---
Anes-Prog Note L&D Date/Time: 08/10/23 08:52 Comfortable throughout: labor and delivery Neuraxial method: epidural Epidural/Spinal procedure site: clean & non-tender Neuro status: Neuro function grossly intact. Cardiovascular status: normal Respiratory status: normal Airway patency: baseline Mental status: baseline Post-Op hydration status: normal Vital Signs: Last Vital Signs Temp 36.6 C 08/09/23 23:00 Pulse 89 08/09/23 23:00 Resp 18 08/09/23 23:00 BP 134/82 08/09/23 23:00 Pulse Ox 97 08/09/23 23:00 O2 Del Method Room Air 08/09/23 15:30 Pain score (VAS): 10 Post-procedural complaints: none Patient feedback: Patient satisfied with anesthetic care.
[2023-08-10 20:00] VITALS: BP 123/66; PULSE 84; RESP 16; TEMP 36.6; O2SAT 99
[2023-08-11] MEDS: ACETAMINOPHEN 325 MG TABLET 650 MG PO (05:06)
--- NOTE | 2023-08-11 07:02 | PM.OBDSVD ---
DS: Admitting Diagnosis Discharge Date 08/11/23 Admitting Diagnosis Induction of labor DS: Discharge Diagnosis Discharge Diagnosis (1) Normal vaginal delivery of third : Code(s): O80 - Encounter for full-term uncomplicated delivery Status: Acute OB - DS: Summary OB Procedures : Ultrasound OB Procedures Intrapartum: Spontaneous Vag Delivery OB Procedures: : None Peripartum Data Infant Delivery Method: Natural Vaginal Laceration Description: Perineal - 1st Degree complications: none 1: Gender: Female Disposition of : home Status at Discharge Functional status at discharge: independent ambulation Overall status at discharge: patient is back to baseline Time Spent with Patient Time attestation: Total time spent providing and/or coordinating discharge services: Time spent: Less than 30 minutes Exam Const: General: cooperative, comfortable, no acute distress and obese Orientation/consciousness: patient oriented x3 Resp: Effort & Inspection: normal respiratory effort Auscultation: clear to auscultation bilaterally Cardio: Rate: regular rate GI: Inspection: non-distended GI Palp: No abdominal tenderness and Yes Soft to palpation Auscultation: normal bowel sounds : Other: fundus firm Skin: General skin exam: normal color Neuro: General: patient oriented x3 Extrem: General: normal to inspection Psych: Appearance: grossly normal Affect: normal affect Attitude: cooperative DS: Data Data Completed and Pending Labs on day of discharge: Labs from last 24 hours 08/10/23 03:46 Hgb 9.6 L Hct 31.2 L Discharge Plan Discharge Attending physician on discharge: Mari Crow Discharging Clinician: Mari Crow Anticipated Discharge Date/Time: 08/11/23 10:00 Patient Disposition: Home, Self-Care Activity: may shower and pelvic rest Diet: regular Patient Instructions: Vaginal Delivery (DC) Stand Alone Forms: General Discharge Information Follow-up/Referrals: Mari Crow MD [Physician] - 4 Weeks Discharge Medications: New acetaminophen 325 mg Tablet 650 mg PO Q6H PRN (Reason: Mild Pain (1-3) Or Headache) Qty: 60 0RF docusate sodium 100 mg Capsule 100 mg PO BID PRN (Reason: Constipation) Qty: 90 0RF ibuprofen 600 mg Tablet 600 mg PO Q6H PRN (Reason: Cramping) Qty: 40 0RF Continued Classic 28 mg iron- 800 mcg tablet 1 tablet PO DAILY ferrous sulfate [FeroSul] 325 mg (65 mg iron) tablet 325 mg PO DAILY Qty: 90 0RF Date of admission: 08/09/23 06:05 Primary Care Provider: UNKNOWN,DOCTOR Admitting Provider: Mari Crow Attending physician on admission: Mari Crow Condition: Stable
[2023-08-11] MEDS: IBUPROFEN 600 MG TABLET PO ×2 (07:20)
[2023-08-11] MEDS: POLYSACCHARIDE IRON COMPLEX 150 MG CAPSULE PO (07:21)
[2023-08-11 08:25] VITALS: BP 110/46; PULSE 88; RESP 16; TEMP 36.8; O2SAT 100
[2023-08-12 09:37] VITALS: BP 110/75; PULSE 80; RESP 18; TEMP 36.8; O2SAT 99
== END 2023-08-11 14:59 | disposition home or self-care (01) | DRG 560 ==
LOC: ANHLDR 06:09 → ANHOB2 15:32
PROVIDERS: Admitting Provider Obstetrics & Gynecology; Visit Provider Obstetrics & Gynecology
DX: O99.02 Anemia complicating childbirth (principal); D64.9 Anemia, unspecified; Z37.0 Single live birth; Z3A.39 39 weeks gestation of pregnancy; O70.0 First degree perineal laceration during delivery
CPT/HCPCS: 36415; 85014; 85018; 85025; 86592; 86850; 86900; 86901; A9270; J2590; J2795; J7120